=== PATIENT | male | born 1955 | race Caucasian/White ===

== ENCOUNTER 2017-01-25 15:51 | Emergency (ER) | payer BC ==
[~2017-01-25] VITALS: Ht 180.3 cm; Wt 77.2 kg
[~2017-01-25 15:51] MED LIST: ASPCH81X PO; ATOR10TA82 PO; DOFE500C PO; MULT-506 PO; OMEG10007 PO; VITAMIN C PO; VITAMIN D PO; WARF5TAB90 PO
[2017-01-25] MEDS ORDERED: ASPI81TA28 PO (16:09)
[2017-01-25 16:14] VITALS: TEMP 36.8; Ht 180.3 cm; Wt 77.2 kg
[2017-01-25 16:35] LABS: BASO % 0.4 %; BASO ABS # 0.02 K/uL (0-0.2); COMPLETE YES; EOS % 1.2 %; HEMATOCRIT 45.4 % (42-52); IG% 0.2 %; LYMPH % 17.2 %; LYMPH ABS # 0.89 K/uL (1.2-3.4); MEAN CELL VOLUME 96.4 fL (80-100); MEAN CORPUSCULAR HEMOGLOBIN 32.7 pg (25-34); MEAN CORPUSCULAR HGB CONC 33.9 g/dl (32-36); MEAN PLATELET VOLUME 9.8 fL (7.4-10.4); MONO % 11.8 %; NEUT % 69.2 %; PLATELET COUNT 194 K/uL (130-400); RED BLOOD COUNT 4.71 M/uL (4.7-6.1); WHITE BLOOD COUNT 5.18 K/uL (4.8-10.8)
--- NOTE | 2017-01-25 16:47 | DIAGNOSTIC IMAGING REPORT ---
CHEST ONE VIEW PORTABLE CLINICAL HISTORY: 61 years-old Male presenting with EVALUATE ALTERED MENTAL STATUS/WEAKNESS. TECHNIQUE: Portable upright AP view of the chest was obtained. COMPARISON: None. FINDINGS: Cardiomediastinal silhouette normal. Lungs and pleural spaces clear. Degenerative changes of the thoracic spine. Upper abdomen normal. IMPRESSION: 1. No acute cardiopulmonary disease. Electronically signed by: Derick Phan M.D. 01/25/2017 4:45 PM Dictated Date/Time: 01/25/2017 4:45 PM
[2017-01-25 16:51] LABS: URINE APPEARANCE CLOUDY (CLEAR); URINE BILIRUBIN NEG (NEG); URINE COLOR YELLOW; URINE EPITHELIAL CELL AUTO >30 /lpf (0-5); URINE NITRITE NEG (NEG); URINE PH >= 9.0 (4.5-7.5); URINE SPECIFIC GRAVITY 1.017 (1.000-1.030); UROBILINOGEN NEG (NEG); ZZUR CULT IF INDIC CLEAN CATCH NO
[2017-01-25 16:53] LABS: CALCIUM 8.9 mg/dl (8.5-10.1); CREATININE 1.09 mg/dl (0.60-1.40); MAGNESIUM 2.2 mg/dl (1.8-2.4); POTASSIUM 4.1 mmol/L (3.5-5.1)
[2017-01-25 16:55] LABS: MANUAL MICROSCOPIC REQUIRED? NO; REVIEW REQ? YES
[2017-01-25 17:04] LABS: ALB/GLOB RATIO 1.3 (0.9-2); THYROID STIMULATING HORMONE 4.86 uIu/ml (0.300-4.500)
--- NOTE | 2017-01-25 18:32 | EMERGENCY ROOM VISIT NOTE ---
History Report prepared by Jung: Prashant Arambula Under the Supervision of: Dr. Rainer Pleitez M.D. First contact with patient: 15:54 Stated Complaint: SYNCOPE History of Present Illness The patient is a 61 year old male who presents to the Emergency Room by EMS with complaints of a syncopal episode occurring just prior to arrival. The patient was at a conference when he began feeling dizzy and hot. He passed out while walking back from getting water. He notes that he had just given a presentation on stage about 10 minutes prior. The patient states that he was caught and lowered to the ground. He states that he felt lightheaded prior to his episode. He has a history of lightheadedness when having blood drawn and states that today's lightheadedness felt similar. The patient denies chest pain , or SOB. He states that he felt normal this morning. He denies any changes to medications. The patient notes that he has not been sleeping much this week. His BSG was 108 by EMS. He has a history of aortic aneurysm. The patient had an ablation for paroxysmal a-fib earlier this year. He is not on any blood thinners. Source of History: patient Onset: Just prior to arrival Quality: other (syncope) Timing: other (episode) Associated Symptoms: + LOC, No chest pain, No SOB Note: Additional symptoms: feeling dizzy and hot prior to the episode. Review of Systems See HPI for pertinent positives & negatives. A total of 10 systems reviewed and were otherwise negative. Past Medical & Surgical Medical Problems: (1) Aortic aneurysm (2) Paroxysmal atrial fibrillation Family History No pertinent family history stated. Social History Smoking Status: Never Smoker Marital Status: Occupation Status: employed Current/Historical Medications Scheduled Aspirin (Aspirin Ec), 81 MG PO DAILY Atorvastatin (Lipitor), 10 MG PO QAM Fish Oil ([place]-3), 1 CAP PO QAM Multivitamin (Multivitamin), 1 TAB PO QAM [Vitamin C], 500 MG PO QAM [Vitamin D], 2,000 UNITS PO QAM Allergies Coded Allergies: No Known Allergies (Unverified , 01/25/17) Physical Exam Vital Signs Date Time Temp Pulse Resp B/P (MAP) Pulse Ox O2 Delivery O2 Flow Rate FiO2 01/25/17 18:30 79 20 122/90 95 Room Air 01/25/17 17:29 81 20 138/100 97 Room Air 01/25/17 16:28 83 20 126/83 98 Room Air 85 123/89 94 125/90 01/25/17 16:27 84 20 125/90 95 Room Air 01/25/17 16:14 36.8 81 20 150/100 97 Room Air 01/25/17 16:07 88 Physical Exam GENERAL: Patient is in no acute distress. HEENT: No acute trauma, normocephalic atraumatic, mucous membranes moist, no nasal congestion, no scleral icterus. NECK: No stridor, no adenopathy, no meningismus, trachea is midline. LUNGS: Clear to auscultation bilaterally, no wheeze, no rhonchi, breath sounds equal. HEART: Without murmurs gallops or rubs, regular rate and rhythm. ABDOMEN: Soft, nontender, bowel sounds positive, no hernias, no peritonitis. EXTREMITIES: No cyanosis or edema, full range of motion of all the joints without pain or difficulty, no signs for acute trauma. NEUROLOGIC: Oriented x 3, no acute motor or sensory deficits, no focal weakness. SKIN: No rash, no jaundice, no diaphoresis. Medical Decision & Procedures ER Provider Diagnostic Interpretation: X-ray results as stated below per interpretation by me and the radiologist: CHEST ONE VIEW PORTABLE FINDINGS: Cardiomediastinal silhouette normal. Lungs and pleural spaces clear. Degenerative changes of the thoracic spine. Upper abdomen normal. IMPRESSION: 1. No acute cardiopulmonary disease. Electronically signed by: Derick Phan M.D. 01/25/2017 4:45 PM Orthostatic vital signs are negative. Laboratory Results 01/25/17 16:20 Red Blood Count 4.71, Mean Corpuscular Volume 96.4, Mean Corpuscular Hemoglobin 32.7, Mean Corpuscular Hemoglobin Concent 33.9, Mean Platelet Volume 9.8, Neutrophils (%) (Auto) 69.2, Lymphocytes (%) (Auto) 17.2, Monocytes (%) (Auto) 11.8, Eosinophils (%) (Auto) 1.2, Basophils (%) (Auto) 0.4, Neutrophils # (Auto ) 3.59, Lymphocytes # (Auto) 0.89, Monocytes # (Auto) 0.61, Eosinophils # (Auto ) 0.06, Basophils # (Auto) 0.02 01/25/17 16:20 Test 01/25/17 16:20 01/25/17 16:35 01/25/17 18:34 White Blood Count 5.18 K/uL (4.8-10.8) Red Blood Count 4.71 M/uL (4.7-6.1) Hemoglobin 15.4 g/dL (14.0-18.0) Hematocrit 45.4 % (42-52) Mean Corpuscular Volume 96.4 fL (80-100) Mean Corpuscular Hemoglobin 32.7 pg (25-34) Mean Corpuscular Hemoglobin Concent 33.9 g/dl (32-36) Platelet Count 194 K/uL (130-400) Mean Platelet Volume 9.8 fL (7.4-10.4) Neutrophils (%) (Auto) 69.2 % Lymphocytes (%) (Auto) 17.2 % Monocytes (%) (Auto) 11.8 % Eosinophils (%) (Auto) 1.2 % Basophils (%) (Auto) 0.4 % Neutrophils # (Auto) 3.59 K/uL (1.4-6.5) Lymphocytes # (Auto) 0.89 K/uL (1.2-3.4) Monocytes # (Auto) 0.61 K/uL (0.11-0.59) Eosinophils # (Auto) 0.06 K/uL (0-0.5) Basophils # (Auto) 0.02 K/uL (0-0.2) RDW Standard Deviation 43.9 fL (36.4-46.3) RDW Coefficient of Variation 12.5 % (11.5-14.5) Immature Granulocyte % (Auto) 0.2 % Immature Granulocyte # (Auto) 0.01 K/uL (0.00-0.02) Anion Gap 7.0 mmol/L (3-11) Est Creatinine Clear Calc Drug Dose 75.8 ml/min Estimated GFR () 84.5 Estimated GFR (Non- 72.9 BUN/Creatinine Ratio 14.0 (10-20) Calcium Level 8.9 mg/dl (8.5-10.1) Magnesium Level 2.2 mg/dl (1.8-2.4) Total Bilirubin 0.4 mg/dl (0.2-1) Aspartate Amino Transf (AST/SGOT) 14 U/L (15-37) Alanine Aminotransferase (ALT/SGPT) 37 U/L (12-78) Alkaline Phosphatase 67 U/L (45-117) Total Protein 7.0 gm/dl (6.4-8.2) Albumin 3.9 gm/dl (3.4-5.0) Globulin 3.1 gm/dl (2.5-4.0) Albumin/Globulin Ratio 1.3 (0.9-2) Thyroid Stimulating Hormone (TSH) 4.860 uIu/ml (0.300-4.500) Urine Color YELLOW Urine Appearance CLOUDY (CLEAR) Urine pH >= 9.0 (4.5-7.5) Urine Specific [place] 1.017 (1.000-1.030) Urine Protein NEG (NEG) Urine Glucose (UA) NEG (NEG) Urine Ketones NEG (NEG) Urine Occult Blood NEG (NEG) Urine Nitrite NEG (NEG) Urine Bilirubin NEG (NEG) Urine Urobilinogen NEG (NEG) Urine Leukocyte Esterase TRACE (NEG) Urine WBC (Auto) 1-5 /hpf (0-5) Urine RBC (Auto) 0-4 /hpf (0-4) Urine Hyaline Casts (Auto) 1-5 /lpf (0-5) Urine Epithelial Cells (Auto) >30 /lpf (0-5) Urine Bacteria (Auto) NEG (NEG) Urine Renal Epithelial Cells 0-5 /lpf (0-5) Urine Crystals AMORPHOUS SEDIMENT (NONE Bedside Troponin I < 0.030 ng/ml (0-0.045) Laboratory results reviewed by me. ECG Indication: syncope Rate (beats per minute): 77 Rhythm: normal sinus Findings: no acute ischemic change, no ectopy ED Course 1557: The patient was evaluated in room C5. A complete history and physical exam was performed. 1642: I reassessed the patient. He is resting comfortably. 1900: Reevaluated the patient. Discussed results and discharge instructions: he verbalized understanding and agreement. The patient is ready for discharge. Medical Decision The patient is a 61 year old male who presents to the ED with complaints of syncope. Differential diagnoses considered include dehydration, exhaustion, anemia, electrolyte imbalance, dysrhythmia, NV, and infection. There is no leukocytosis or concerning anemia. No significant electrolyte abnormality, kidney failure or hepatitis. Chest film does not show CHF or pneumonia. No pneumothorax or significant mediastinal widening. EKG shows a normal sinus rhythm, no acute ischemia, no dysrhythmia. Cardiac enzyme testing 2 is not consistent with acute cardiac injury. Orthostatic vital signs are negative. Urinalysis did not show evidence for infection. The patient was able to drink oral fluids while here in the ER, he feels well, no recurrence of symptoms. I discussed the case with cardiology on-call. The patient is being discharged with outpatient cardiology follow-up. Nothing worrisome found today by workup, the patient was reassured. Rest, hydration were encouraged. The syncopal episode today was likely vasovagal. Medication Reconcilliation Current Medication List: was personally reviewed by me Blood Pressure Screening Patient's blood pressure: Elevated blood pressure Blood pressure disposition: Elevated BP felt to be situational Consults Time Called: 1703 Consulting Physician: Dr. León -Cardiology Returned Call: [id number] Discussed the patient's case. Dr. León feels that the patient would be safe for discharge if his repeat Troponin is normal. Impression Primary Impression: Syncope Scribe Attestation The scribe's documentation has been prepared under my direction and personally reviewed by me in its entirety. I confirm that the note above accurately reflects all work, treatment, procedures, and medical decision making performed by me. Departure Information Dispostion Home / Self-Care Referrals Murali Correa D.O. (PCP) Forms HOME CARE DOCUMENTATION FORM, IMPORTANT VISIT INFORMATION Patient Instructions My [facility] [address] Additional Instructions fluids rest see cardiology for a followup this week call in the am for a cardiology appt lab testing was all ok today
[2017-01-25 18:58] VITALS: BP 122/90; PULSE 79; O2SAT 95
== END 2017-01-25 18:58 | disposition home or self-care (01) ==
LOC: EDBD 15:51 → C.EDC 15:52
DX: R55 Syncope and collapse (principal); I71.9 Aortic aneurysm of unspecified site, without rupture; I48.0 Paroxysmal atrial fibrillation; Z79.82 Long term (current) use of aspirin; Z79.899 Other long term (current) drug therapy